=== PATIENT | male | born 1990 | race Two or more races ===

== ENCOUNTER → 2024-10-12 | Outpatient (CLI) | payer OTHER ==
--- NOTE | 2024-10-12 11:14 | DVH ---
Procedure: CT CHEST WITHOUT CONTRAST Reason for study/Clinical History: NODULES Comparison Study: None available at time of dictation. Exam Date: 10/12/2024 10:24 AM TECHNIQUE: Multidetector CT of the chest was performed from the lung apices to the upper abdomen with out the use of intravenous contract. Coronal and sagittal multiplanar reformats were performed. Radiation Dose Information: CT Dose: CTDI volume is 15.31 mGy. Dose-length product is 620.59 mGy*cm The dose indicators for CT are the volume Computed Tomography (CT) Dose Index (CTDIvol) and the Dose Length Product (DLP), and are measured in units of mGy and mGy-cm, respectively. These indicators are not patient dose, but values generated from the CT scanner acquisition factors. The report includes radiation exposure data for exposures received during this examination. FINDINGS: Lower neck: Normal thyroid. Lungs: Focal opacities in the right upper and right middle lobe. Lungs are otherwise clear. Central airways: Patent. Heart/Vascular Structures: Normal heart size. No pericardial effusion. Normal caliber thoracic aorta and main pulmonary artery. Lymph Nodes: No adenopathy Pleura: No pleural effusion or significant pneumothorax. Musculoskeletal: No acute osseous abnormality. Soft tissues: Bilateral gynecomastia. Upper abdomen: Limited portions of the upper abdomen are unremarkable. IMPRESSION: 1. Focal opacities in the right upper and right middle lobe which may reflect atelectasis or infiltra te. Radiation optimization: All CT scans at this facility use at least one of these dose optimization benito hniques: automated exposure control mA and/or kV adjustment per patient size (includes targeted exam s where dose is matched to clinical indication) or iterative reconstruction.
== END | disposition home or self-care (01) ==
LOC: XYW 10:13
DX: E04.2 Nontoxic multinodular goiter (principal); N62 Hypertrophy of breast
CPT/HCPCS: 71250